=== PATIENT | female | born 2000 | race African-American/Black ===

== ENCOUNTER 2021-01-29 08:10 | Inpatient (IN) | payer MEDICAID, SELFPAY ==
[2021-01-29] VITALS (40 sets, daily range): BP systolic 105–156; BP diastolic 57–88; PULSE 73–97; TEMP 36.2–37.6; O2SAT 98–100; BMI 26.2
[2021-01-29] MEDS: Lactated Ringers 1,000 ML 50 ML IV (08:35)
--- NOTE | 2021-01-29 08:41 | PCM.HP.OB ---
HPI - General General Date of Admission: 01/29/21 HPI Narrative GLENN MAE, is a 20 F who presents with ctxs. Maternal Data Information Final JOSELUIS: [birth year] Gestational age: 39&1 [facility] Medical History (Updated 01/29/21 @ 08:[address] Iza Camacho MD) Anxiety Herpes genitalia Supervision of normal in third trimester Home Medications acyclovir 400 mg PO TID 01/29/21 [History Last Taken 01/28/21] (w/o vit A)-Fe fum-FA [ Care] tab PO 01/29/21 [History Last Taken 01/28/21] Allergy/AdvReac Type Severity Reaction Status Date / Time amoxicillin Allergy Hives Verified 01/29/21 06:26 cefdinir [From Omnicef] Allergy Hives Verified 01/29/21 06:26 Penicillins Allergy Hives Verified 01/29/21 06:26 NST FHR Rate Baby A Baseline: 130 Variability:: Moderate Accelerations:: 15 x 15 Decelerations:: None Uterine Activity:: Irregular Vital Signs Vital Signs Vital Signs: 01/29/21 06:21 01/29/21 06:23 Temperature 98.1 F Pulse Rate 80 78 Blood Pressure 136/88 H BP Systolic 136 BP Diastolic 88 Pulse Ox 100 Weight Weight: 157 lb 3.2 oz Body Mass Index (BMI) 26.2 Physical Exam Const alert and oriented x3 Chest inspection of chest normal Resp normal respiratory effort external exam normal Narrative: cvx - 4/70/-2, no HSV lesions Labs Labs Labs: No Data to Display See [facility] H&P Assessment & Plan (1) Supervision of normal in third trimester: QUALIFIERS: Normal : normal first Qualified Code(s): Z34.03 - Encounter for supervision of normal first , third trimester COMMENT: @ 39&1 PLAN: Admit to L&D COVID swab pending GBS positive - vancomycin d/t allergies and clindamycin resistance EFW - less than 4500g, patient with adequate pelvis Pain - epidural as desired Routine care
[2021-01-29 08:55] LABS: Absolute Lymphocyte Count 1.87 X10^3/uL (0.83-4.51); Basophil# 0.03 X10^3/uL; Basophil% 0.2 % (0-1); Eosinophil# 0.01 X10^3/uL; Eosinophils% 0.1 % (0-5); Hematocrit 37.3 % (37-47); Hemoglobin 13.2 g/dL (12.0-15.0); Lymphocyte # 1.87 X10^3/ul (0.83-4.51); Lymphocyte % 10.6 % (19-41); Mean Corp Hgb Conc 35.4 g/dL (32-36); Mean Corpuscular Hgb 34.9 pg (27.0-32.0); Mean Corpuscular Volume 98.7 fL (81-99); Mean Platelet Vol. 11.8 fl (6.2-12.0); Monocyte# 0.67 X10^3/uL; Monocyte% 3.8 % (0-10); NRBC Flagged by Analyzer 0 % (0-5); Neutrophil # 14.97 X10^3/uL (2.7-7.7); Neutrophil % 84.8 % (47-70); Platelet Count 237 K/mm3 (150-450); RBC Distribution Width CV 12.1 % (11.6-14.6); RBC Distribution Width SD 43.7 fl (35.1-43.9); Red Blood Count 3.78 M/mm3 (4.2-5.4); White Blood Count 17.6 K/mm3 (4.4-11.0)
[2021-01-29] MEDS: Lactated Ringers 500 ML 999 ML IV ×2 (09:03→14:51)
[2021-01-29 09:10] LABS: Amphetamine Urine VISTA NEGATIVE (<1000 ng/mL); Barbiturate Urine VISTA NEGATIVE (< 200 ng/mL); Benzodiazepine Urine VISTA NEGATIVE (< 200 ng/mL); Cocaine Urine VISTA NEGATIVE (< 300 ng/mL); Ecstacy Urine VISTA NEGATIVE (< 500 ng/mL); Methadone Urine VISTA NEGATIVE (< 300 ng/mL); PCP Urine VISTA NEGATIVE (< 25 ng/mL); THC Urine VISTA POSITIVE (< 50 ng/mL); Vista UDS pH Range 8
[2021-01-29] MEDS: fentaNYL-bupivacaine (epidural) 100 ML BAG EPIDURAL ×2 (10:16→14:50)
[2021-01-29] MEDS: Oxytocin 30 units/NS 500 ml 30 UNITS/500 ML IV.SOLN IV (11:23)
--- NOTE | 2021-01-29 13:01 | PN.OBGYN_ITS ---
Subjective Subjective Patient comfortable with epidural Objective Data Objective Data Vital Signs: Vital Signs Temp Pulse BP Pulse Ox 99.3 F H 85 111/75 99 01/29/21 13:00 01/29/21 13:00 01/29/21 13:00 01/29/21 10:30 Weight: 157 lb 3.2 oz Body Mass Index (BMI) 26.2 Intake & Output: Intake and Output for Last 24 Hours 01/27/21 01/28/21 01/29/21 23:59 23:59 23:59 Intake Total 1098.47 / 1098.47 Balance 1098.47 / 1098.47 Lab / Micro Data Result Diagrams: 01/29/21 08:45 Labs: Laboratory Results - last 24 hr 01/29/21 08:45: WBC 17.6 H, RBC 3.78 L, Hgb 13.2, Hct 37.3, MCV 98.7, MCH 34.9 H , MCHC 35.4, RDW Std Deviation 43.7, RDW Coeff of Marilu 12.1, Plt Count 237, MPV 11.8, Immature Gran % (Auto) 0.500, Neut % (Auto) 84.8 H, Lymph % (Auto) 10.6 L, [place] % (Auto) 3.8, Eos % (Auto) 0.1, Baso % (Auto) 0.2, Absolute Neuts (auto) 15.0 H, Absolute Lymphs (auto) 1.87, Nucleated RBC % 0 01/29/21 08:45: Blood Type B POSITIVE, Antibody Screen NEGATIVE 01/29/21 08:45: Urine Opiates Screen NEGATIVE, Urine Methadone Screen NEGATIVE, Ur Barbiturates Screen NEGATIVE, Ur Phencyclidine Scrn NEGATIVE, Ur Amphetamines Screen NEGATIVE, U Methamphetamin-MDMA NEGATIVE, U Benzodiazepines Scrn NEGATIVE, Urine Cocaine Screen NEGATIVE, U Cannabinoids Screen POSITIVE H, Ur Drug Screen Comment Micro: Microbiology 01/29/21 08:37 Nasal Secretion SARS-CoV-2 Antigen (Rapid) - Final Physical Exam Const alert and oriented x3 Narrative: cvx - 6/80/-2 NST FHR Rate Baby A Baseline: 130 Variability:: Minimal and Moderate Accelerations:: 15 x 15 Decelerations:: Variable Uterine Activity:: Q 2-4 minutes Assessment & Plan (1) Supervision of normal in third trimester: QUALIFIERS: Normal : normal first Qualified Code(s): Z34.03 - Encounter for supervision of normal first , third trimester COMMENT: @ 39&1 PLAN: AROM clear fluid Continue pitocin augmentation
[2021-01-29] MEDS: Lactated Ringers 1,000 ML 200 ML IV (14:12)
[2021-01-29] MEDS: Oxytocin 30 units/NS 500 ml 30 UNITS/500 ML IV.SOLN 334 UNITS IV (17:53)
[2021-01-29] MEDS: Methylergonovine 0.2 MG/ML Ampul IM ×2 (18:04)
--- NOTE | 2021-01-29 18:34 | EX.PCM.OBRPT ---
Maternal Data Information Final JOSELUIS: [birth year] Gestational age: 39&1 Vaginal Delivery Maternal Presentation Maternal Presentation: Active Labor Operative Information Date of Procedure: 01/29/21 Pre-Operative Diagnosis: Labor Post-Operative Diagnosis: Labor Surgery / Procedure Performed: Spontaneous Vaginal Delivery Type of Anesthesia: Epidural Estimated Blood Loss: 500ml Findings Description of Procedure: Patient prepped & draped when C/C/+2. She pushed well to deliver the head. head gently guided to allow delivery of anterior and posterior shoulders. No excess traction placed on head. Body delivered and 3VC clamped & cut in delayed fashion. Placenta delivered with gentle traction and good uterine tone obtained. Presentation: ROMINA Amniotic Membrane Rupture Type: Artificial Amniotic Fluid Description: Clear Placental Delivery Description: Expressed Placenta Disposition: [facility] Specimen(s) Removed: Placenta Cord Vessel Description: 3 Vessels Cord Entanglement: Around neck x 1, loose Nuchal Cord Compression: Without compression A Gender: Male (Otto[place]kor (Maddy)) (1 minute): 8 (5 minute): 9 Delayed Cord Clamping: Yes Post Vaginal Delivery Medications Given After Delivery: IV Pitocin and IM Methergin Episiotomy Description: None Laceration: 1st degree (vaginal - repaired with 3-0 vicryl) Complication Complications: None
[2021-01-29] MEDS: Acetaminophen 500 MG Tablet 1000 MG PO (19:33)
[2021-01-29] MEDS: Senna/Docusate Sodium 1 Tablet PO (20:03)
[2021-01-29] MEDS: Ibuprofen 600 MG Tablet PO (20:31)
[2021-01-29] MEDS: Benzocaine/Lanolin/Aloe Vera 1 SPRAY EACH TOPICAL (20:33)
[2021-01-30] VITALS: BP 124/65; PULSE 80; RESP 18; TEMP 36.4; O2SAT 98
[2021-01-30 04:34] VITALS: BP 125/68; PULSE 85; RESP 16; TEMP 37.1; O2SAT 99
[2021-01-30] MEDS: Acetaminophen 500 MG Tablet 1000 MG PO ×3 (04:41→19:51)
[2021-01-30 04:42] LABS: Hematocrit 32.9 % (37-47); Hemoglobin 11.5 g/dL (12.0-15.0); Mean Corpuscular Hgb 35.2 pg (27.0-32.0); Mean Corpuscular Volume 100.6 fL (81-99); Mean Platelet Vol. 11.1 fl (6.2-12.0); Platelet Count 190 K/mm3 (150-450); RBC Distribution Width CV 12.1 % (11.6-14.6); Red Blood Count 3.27 M/mm3 (4.2-5.4)
--- NOTE | 2021-01-30 07:47 | NURSING ---
All charting by gato Gary reviewed by this RN.
--- NOTE | 2021-01-30 08:48 | PN.OBGYN_ITS ---
Subjective Subjective Pain well controlled. Average lochia. Tired. Objective Data Objective Data Vital Signs: Vital Signs Temp Pulse Resp BP Pulse Ox 98.8 F 85 16 125/68 H 99 01/30/21 04:34 01/30/21 04:34 01/30/21 04:34 01/30/21 04:34 01/30/21 04:34 Oxygen Delivery Method Room Air Weight: 71.305 kg Body Mass Index (BMI) 26.2 Intake & Output: Intake and Output for Last 24 Hours 01/28/21 01/29/21 01/30/21 23:59 23:59 23:59 Intake Total 3977.48 / 3977.48 Output Total 1600 / 2200 600 / 600 Balance 2377.48 / 1777.48 -600 / -600 Lab / Micro Data Result Diagrams: 01/30/21 04:34 Labs: Laboratory Results - last 24 hr 01/29/21 08:45: WBC 17.6 H, RBC 3.78 L, Hgb 13.2, Hct 37.3, MCV 98.7, MCH 34.9 H , MCHC 35.4, RDW Std Deviation 43.7, RDW Coeff of Marilu 12.1, Plt Count 237, MPV 11.8, Immature Gran % (Auto) 0.500, Neut % (Auto) 84.8 H, Lymph % (Auto) 10.6 L, [place] % (Auto) 3.8, Eos % (Auto) 0.1, Baso % (Auto) 0.2, Absolute Neuts (auto) 15.0 H, Absolute Lymphs (auto) 1.87, Nucleated RBC % 0 01/29/21 08:45: Blood Type B POSITIVE, Antibody Screen NEGATIVE 01/29/21 08:45: Urine Opiates Screen NEGATIVE, Urine Methadone Screen NEGATIVE, Ur Barbiturates Screen NEGATIVE, Ur Phencyclidine Scrn NEGATIVE, Ur Amphetamines Screen NEGATIVE, U Methamphetamin-MDMA NEGATIVE, U Benzodiazepines Scrn NEGATIVE, Urine Cocaine Screen NEGATIVE, U Cannabinoids Screen POSITIVE H, Ur Drug Screen Comment 01/30/21 04:34: WBC 19.0 H, RBC 3.27 L, Hgb 11.5 L, Hct 32.9 L, MCV 100.6 H, MCH 35.2 H, MCHC 35.0, RDW Std Deviation 44.0 H, RDW Coeff of Marilu 12.1, Plt Count 190, MPV 11.1 Micro: Microbiology 01/29/21 08:37 Nasal Secretion SARS-CoV-2 Antigen (Rapid) - Final Physical Exam Const alert and no apparent distress Narrative: Fundus firm, below umbilicus. Assessment & Plan (1) Normal vaginal delivery: PLAN: day #1 status post vaginal delivery. and patient are doing well. Afebrile. Hemoglobin appropriate for blood loss during delivery. No anemia. Work on breast-feeding today. Likely discharge home tomorrow.
[2021-01-30] MEDS: Ibuprofen 600 MG Tablet PO ×2 (08:54→18:45)
[2021-01-30] MEDS: Senna/Docusate Sodium 1 Tablet PO (09:00)
[2021-01-30] MEDS: Hydrocortisone 2.5% Crm 1 APPLIC TOPICAL (09:02)
[2021-01-30 09:19] VITALS: BP 125/85; PULSE 77; RESP 16; TEMP 36.6; O2SAT 99
--- NOTE | 2021-01-30 10:46 | NURSING ---
student nurses charting reviewed and agree. Is used for educational and learning purposes.
[2021-01-30 14:20] VITALS: BP 114/81; PULSE 75; RESP 16; TEMP 36.8; O2SAT 99
--- NOTE | 2021-01-30 14:51 | NURSING ---
student nurses charting reviewed. Used for educational and learning purposes.
[2021-01-30] MEDS: Sertraline 50 MG Tablet 25 MG PO (18:33)
[2021-01-30 18:40] VITALS: BP 109/68; PULSE 77; RESP 18; TEMP 37; O2SAT 98
[2021-01-30 19:32] VITALS: BP 122/60; PULSE 76; RESP 16; TEMP 36.3; O2SAT 95
[2021-01-31 02:20] VITALS: BP 113/71; PULSE 76; RESP 16; TEMP 36.7; O2SAT 95
--- NOTE | 2021-01-31 08:43 | PCM.PN.OB ---
Subjective Subjective pain well controlled, average lochia. H/o depression and feeling overwhelmed. D esires to restart zoloft, started last night. Objective Data Objective Data Vital Signs: Vital Signs Temp Pulse Resp BP Pulse Ox 98.0 F 76 16 113/71 95 01/31/21 02:20 01/31/21 02:20 01/31/21 02:20 01/31/21 02:20 01/31/21 02:20 Oxygen Delivery Method Room Air Weight: 71.305 kg Body Mass Index (BMI) 26.2 Intake & Output: Intake and Output for Last 24 Hours 01/29/21 01/30/21 01/31/21 23:59 23:59 23:59 Intake Total 3977.48 / 3977.48 Output Total 1600 / 2200 600 / 600 Balance 2377.48 / 1777.48 -600 / -600 Lab / Micro Data Result Diagrams: 01/30/21 04:34 Micro: Microbiology 01/29/21 08:37 Nasal Secretion SARS-CoV-2 Antigen (Rapid) - Final Physical Exam Const alert and no apparent distress Narrative: Fundus firm, below umbilicus. Assessment & Plan (1) Normal vaginal delivery: PLAN: Routine care, . (2) Anxiety: PLAN: some anxiety/depression, restart zoloft and f/u in office in 1 week
--- NOTE | 2021-01-31 08:46 | PCM.DC.SUM ---
Providers Date of Admission: 01/29/21 Primary Care Physician: Latesha Primary Care Phys Reason For Visit: VAG Diagnosis Discharge Diagnosis (1) Normal vaginal delivery: Status: Acute Code(s): O80 - Encounter for full-term uncomplicated delivery (2) Anxiety: Status: Acute Code(s): F41.9 - Anxiety disorder, unspecified Medications at Discharge Home Medications (w/o vit A)-Fe fum-FA 1 tab PO DAILY 01/29/21 ibuprofen 600 mg PO Q6H PRN #60 tablet 01/31/21 sertraline [Zoloft] 50 mg PO DAILY #30 tab 01/31/21 Hospital Course Operations - (Vaginal delivery on 01/29/2021) Procedures None Summary of Care Provided Hospital Course: Patient admitted in labor, had a normal delivery. D/sanju home on PPD#2 with routine instructions. Restarted zoloft for anxiety/depression Weight / BMI Weight Weight: 71.305 kg Body Mass Index (BMI) 26.2 ABG / Lab / Microbiology Data Result Diagrams: 01/30/21 04:34 Microbiology: Microbiology 01/29/21 08:37 Nasal Secretion SARS-CoV-2 Antigen (Rapid) - Final D/C Instructions May resume sexual activity in: 6 weeks Please Follow Up With: Prisca Valerio MD When: Follow up with our office in 1-2 and 6 weeks or as needed. [phone] Meaningful Use Info Meaningful Use Diagnoses (Choose all that apply): None applicable Discharge Plan Admission Admit Date/Time: 01/29/21 08:10 Primary Reason for Your Visit: Labor and delivery Attending Provider: Iza Camacho Primary Care Provider: Care Physician,No Primary Discharge Orders/Prescriptions Prescriptions: New sertraline [Zoloft] 50 mg tablet 50 mg PO DAILY Qty: 30 RF: 0 ibuprofen [ibuprofen] 600 MG tablet 600 mg PO Q6H PRN (Reason: Pain) Qty: 60 RF: 1 Continued (w/o vit A)-Fe fum-FA 40 mg iron-1 mg Tablet 1 tab PO DAILY RF: 0 Discontinued acyclovir 400 mg Tablet 400 mg PO TID RF: 0 Referrals / Follow Up: Care Physician,No Primary [Primary Care Provider] - Disposition Disposition (needs filled in before D/C Order can be placed): Home, Self Care
[2021-01-31 08:49] VITALS: BP 116/73; PULSE 87; RESP 16; TEMP 36.9; O2SAT 97
[2021-01-31] MEDS: Senna/Docusate Sodium 1 Tablet PO (09:55)
[2021-01-31] MEDS: Sertraline 50 MG Tablet 25 MG PO (09:56)
[2021-01-31] MEDS: Acetaminophen 500 MG Tablet 1000 MG PO (10:06)
[2021-01-31] MEDS: Ibuprofen 600 MG Tablet PO ×2 (10:08→22:14)
--- NOTE | 2021-01-31 10:48 | NURSING ---
This instructor administered medication with this student.
--- NOTE | 2021-01-31 13:29 | CASEMGMT ---
Social Work Assessment Labor and Delivery Unit Patient Address: [address] [place] [address], [facility] [address], [place] [address] Phone number: [phone]; alternate #[phone] Date of Referral: 01/30/2021 Time of Referral: 241 Referred By: Dr. Capps, kettle room helper Date of Intervention: 01/31/2021 Time of Intervention: 1100 Reason for Referral: Maternal history of THC use, anxiety, depression, PTSD; trigger of PHQ9 during this assessment, score of 11. History obtained from: Medical records and mother of baby (MOB) Keenan Jacobson; father of baby (FOB) Jamison Peter present for most of conversation. Household composition: MOB and FOB have lived in their home since March 2020. Plan for infant to live in this home as well. Patient's parent/guardian status: AIDE is a 20-year-old single -[place] female, involved with the FOB who is a 20-year-old single -[place] male, since both were 12 years old. During private conversation AIDE denies any history of domestic violence or intimate partner violence. baby is the first for both. baby is to be named Ryan Peter, born 01/29/2022. Medical History: AIDE is 1, para 0 now 1 after delivering Ryan. care started in the first trimester and regular thereafter. Delivery occurred at 39 weeks gestation. weight for baby was 7 pounds 10 ounces. Apgars 8 and 9 at 1 and 5 minutes of life respectively. Educational Status: AIDE recently graduated from nursing school. No concerns with reading, writing, or learning comprehension. Reports need to take her licensing test to receive her registered nursing license. Financial Status: AIDE currently works as an [employer] at [employer]. We will transition to a nursing role once receives license. FOB works driving the [employer] 3 days a week. Financial situation is reported as stable. Infant Supplies: MOB and FOB report to have all necessary supplies for the infant including safe sleep spaces, car seat, clothing, diapers and wipes. MOB has a breast pump and would like to provide breast milk for a year. Childcare/Caregiver(s): MOB and FOB will be primary caregivers. Will have help from both of the infant's grandmothers. Transportation: No reported issues or concerns. Programs/Agencies Involved: MOB is linked with job and family services for food and medical. 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 Reports to be in counseling through the [facility] seeing Cathi Norwood. No other agency involvement reported. Children Services/Legal Issues: None reported. Behavioral Health Issues: Mental Health History: MOB reports a long history of depression and anxiety, which did exacerbate during this with anxiety more prominent. MOB reports finding the JOSE's brother in August 2019, after the brother completed suicide. MOB describes posttraumatic stress symptoms since that time including difficulty sleeping, nightmares, visions when trying to sleep, and night sweats. Reports has been working with her therapist. Denies any active thoughts, plans, or intent for suicide, but admits during this having fleeting thoughts of being okay if somebody would kill the MOB. MOB denies any history of attempts, and again denied any planning or intent to take her own life. MOB reports over the last 2 weeks she has had none of these types of thoughts of dying, and reports currently to be feeling much better now that the baby is born. Identifies the baby as a reason to live and to continue with her own mental health recovery. MOB reports has been working on grounding techniques in order to help manage and stabilize the anxiety symptoms. PHQ-9 depression screen a score of 11 this date falling into the moderate range of depression. Symptoms discussed. MOB reports will restart prescribed Zoloft, but admits that when taking previously felt no affect at all. Reports plan to take half the dosage and see how this works. Substance Use History: MOB reports prior to would drink alcohol but denies any use during this . Reports history of intermittent THC use as well prior to . Reports THC use increased after finding the JOSE's father . Reports that started using edible THC in order to help sleep, and that without it could not sleep through the night. Reports use of edible did continue throughout the , and that without this sleep was poor. Also reported history of some CBD oil usage in . Denies history of other substance use including heroin, meth, cocaine, pills. Family History: No reported history in the MOB side of the family. There is reported that the JOSE also suffers from depression and anxiety, especially more so since his brother . FOB reportedly uses CBD oil. It is reported that the FOB has a brother who has bipolar disorder and the FOB's father history of schizophrenia. Drug Screens: Maternal drug screen positive for THC on 07/04/2020 and then again at delivery on 01/29/2021. Infant's urine drug screen is positive for marijuana. Meconium drug screen is pending on the having a bowel movement. Family/Social Stressors: MOB and FOB both suffered lost within the last year or so, with the FOB's brother dying in August 2019 by suicide. Grief issues have been present. Other changes include be MOB and FOB moving out of the FOB's parental home in March into their own home. This is reported as a positive change but still a change nonetheless. Unplanned but accepted . Maternal use of THC to cope with sleeping disturbance related to reported PTSD symptoms. Maternal expression of guilt regarding use of THC in , as well as the fact that MOB mother is unaware of this part of the MOB'S life. Support Systems: MOB and FOB report to have fairly open communication with each other, and to try to be supportive of each others emotional health issues. Additional support includes both of the 's grandmothers and then there is extended family such as grandparents and aunts and uncles who would be supportive as well. Depression/Shaken Baby/Safe Sleeping: reviewed safe sleeping and shaken baby prevention. Additional information provided in writing. Reviewed mood and anxiety disorders, risk factors, and importance of seeking help and support. ASSESSMENT: Met with the MOB and FOB together, and then alone with the MOB. MOB and FOB both engaged in conversation, cooperative, pleasant, and open to conversation surrounding mental health and risk. MOB and FOB presenting as supportive of each other as evidenced by relaxed body postures, open conversation, and supportive comments to each other. MOB held good eye contact. Affect appropriate to conversation. Mood anxious. During private conversation with the MOB addressed the PHQ9, substance use, and DV questions. MOB reports the FOB is aware of THC use, just not MOB's mother. MOB reports intent to abstain from future THC use, as reports to be highly motivated to breast feed the baby. Reports to be working on grounding exercises to help with anxiety symptoms. MOB expresses understanding that THC can pass through the breast milk, and expresses understanding that baby should not be exposed. MOB reports to have an appointment with counseloraraceli, on 02.03.2021. Plans to restart Zoloft. 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 Educated MOB that children services goal is to help children and parents stay together safely, not to remove, wanting to ensure that children are safe and parents have access to services to help provide a safe environment for the minor. Emotional support, reflection, encouragement provided to MOB this date. MOB appropriately tearful when discussion about use of THC in and children services was discussed. MOB expressed love for the baby, worry for potential consequences to baby's health, and desire to ensure that baby's needs are being met. MOB does express the baby as a reason and motivation to live and to address own emotional health issues. MOB and FOB both report to have necessary supplies for the baby, and to have an adequate support system. FOB also reports to be excited about having a baby. No voiced concerns by nursing staff regarding parent/child interactions or bonding. Safe Plan of Care for related to substance use: MOB plans to abstain from THC use, to remain in counseling, and restart medications. Should something change and goals are not met, discussed with MOB the importance of assuring there is a sober person around to care for baby and that someone needs to be available to be up and down with baby in the middle of the night. MOB expressed understanding. PLAN: MOB and to discharge home. MOB is connected, and will continue with JFS, WIC, Early Head Start and counseling through the [facility]. 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 -DIANE Bland MSW *This note was generated with [employer] dictation software. It may contain incorrect words, spelling, and punctuation that were not noted in review of the chart prior to signing*
[2021-01-31 13:49] VITALS: BP 105/62; PULSE 79; RESP 15; TEMP 36.7; O2SAT 96
--- NOTE | 2021-01-31 15:28 | NURSING ---
THIS INSTRUCTOR REVIEWED THE DOCUMENTATION COMPLETED BY THE STUDENT NURSE.
[2021-01-31 19:54] VITALS: BP 117/66; PULSE 83; RESP 18; TEMP 37.1; O2SAT 98
--- NOTE | 2021-02-01 16:21 | CASEMGMT ---
Social Work Labor and Delivery Unit Noted that baby transferred to [facility]. Called NICU SOFTWARE ENGINEERING ASSOCIATE MANAGER at [place], Hanna Vance. Handoff report given regarding this family. Called [facility] ([facility]) and spoke with intake supervisor cutting and boning Lashae Amanda ([phone]). 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 No meconium drug screen obtained due lack of bowel movement for the baby, which is reason for transfer to [place]. No other services requested or indicated. -NICOL Bland, SOFTWARE ENGINEERING ASSOCIATE MANAGER
== END 2021-01-31 22:15 | disposition home or self-care (01) | DRG 560 ==
LOC: WPOUT 08:14 → WP 08:14
PROVIDERS: Admitting Provider Obstetrics & Gynecology; Referring Provider Advanced Practice Midwife; Visit Provider Obstetrics & Gynecology
DX: O69.81X0 Labor and delivery complicated by cord around neck, without compression, not applicable or unspecified (principal); Z3A.39 39 weeks gestation of pregnancy; Z37.0 Single live birth; O99.344 Other mental disorders complicating childbirth; F41.9 Anxiety disorder, unspecified; F32.A Depression, unspecified; O98.32 Other infections with a predominantly sexual mode of transmission complicating childbirth; A60.00 Herpesviral infection of urogenital system, unspecified; O99.824 Streptococcus B carrier state complicating childbirth; O70.0 First degree perineal laceration during delivery
CPT/HCPCS: 59025; 59050; 80307; 85025; 85027; 86850; 86900; 86901; 87426; 99218; J7040; J7120; G0378